=== PATIENT | female | born 1965 | race Caucasian/White ===

== ENCOUNTER 2025-01-23 06:22 | Day surgery (SDC) | payer BC ==
[~2025-01-23] VITALS: Ht 167.6 cm; Wt 87.9 kg
[~2025-01-23 06:22] MED LIST: Lactated Ringer's 1,000 ML IV ONE; Mobic15 MG PO
[2025-01-23] MEDS ORDERED: CeFAZolin Sodium 2,000 MG VIAL ONE (06:29)
[2025-01-23] MEDS ORDERED: FentaNYL Citrate 50 MCG/ML 2 ML Injection ONE (06:54)
[2025-01-23] MEDS ORDERED: propofoL 40 ML IV ONE ×2 (06:54→07:35)
[2025-01-23] MEDS ORDERED: Bupivacaine 0.5% W/EPI 1:200000 SDV 30 ML Vial ONE (07:02)
[2025-01-23] MEDS ORDERED: Lidocaine HCl 2% 10 ML SDA ONE (07:02)
[2025-01-23] MEDS ORDERED: Dexmedetomidine HCL 200 MCG / 2 ML ONE (07:14)
[2025-01-23] MEDS ORDERED: Dexamethasone Sod Phos 10 MG/ML 1ML VIAL ONE (08:03)
[2025-01-23] MEDS ORDERED: Ondansetron HCl 2 MG / ML 2ML Vial ONE (08:03)
[2025-01-23] MEDS ORDERED: Famotidine 10 MG/ML 2ML Vial ONE (08:30)
--- NOTE | 2025-01-23 08:33 | NUR ---
01/23/25 0832 FEMI TORRES PT TALKING W ANESTHESIA, AWAKE. BP 73/58.
[2025-01-23 08:53] VITALS: BP 102/66
--- NOTE | 2025-01-23 08:57 | NUR ---
01/23/25 0857 FEMI TORRES BEDSIDE CXR, ANESTHESIA PRESENT TO VIEW. ANESTHESIA STATES PT OKAY TO DC PRIOR TO XR BEING READ. PT STILL COUGHING, NON PRODUCTIVE, AWAKE, ALERT. SATS 98-99%.
[2025-01-23] MEDS ORDERED: OxyCODONE 5 mg/Acetamin 325 mg TABLET ONE (09:10)
== END 2025-01-23 09:25 | disposition home or self-care (01) ==
LOC: ORSCSDS 06:22
PROVIDERS: Podiatrist Foot & Ankle Surgery
PROC: 0QSP04Z Reposition Left Metatarsal with Internal Fixation Device, Open Approach (ICD-10-PCS; principal; 2025-01-23 07:30)
PROC: 0QSR04Z Reposition Left Toe Phalanx with Internal Fixation Device, Open Approach (ICD-10-PCS; principal; 2025-01-23 07:30)
DX: M20.12 Hallux valgus (acquired), left foot (principal)
CPT/HCPCS: 71045; A9270; C1713; C1769; J0690; J1100; J2003; J2405; J2704; J3010

== ENCOUNTER 2025-06-19 11:43 | Day surgery (SDC) | payer BC ==
[~2025-06-19] VITALS: Ht 167.6 cm; Wt 83.1 kg
[~2025-06-19 11:43] MED LIST changes: -Lactated Ringer's 1,000 ML IV ONE
[2025-06-19 13:58] VITALS: BP 118/73
== END 2025-06-19 13:54 | disposition home or self-care (01) ==
LOC: ORSCSDS 11:43
PROVIDERS: Surgery
PROC: 0DB48ZX Excision of Esophagogastric Junction, Via Natural or Artificial Opening Endoscopic, Diagnostic (ICD-10-PCS; principal; 2025-06-19 13:00)
PROC: 0DBL8ZX Excision of Transverse Colon, Via Natural or Artificial Opening Endoscopic, Diagnostic (ICD-10-PCS; principal; 2025-06-19 13:00)
PROC: 0DB98ZX Excision of Duodenum, Via Natural or Artificial Opening Endoscopic, Diagnostic (ICD-10-PCS; principal; 2025-06-19 13:00)
PROC: 0DB78ZX Excision of Stomach, Pylorus, Via Natural or Artificial Opening Endoscopic, Diagnostic (ICD-10-PCS; principal; 2025-06-19 13:00)
DX: K21.9 Gastro-esophageal reflux disease without esophagitis (principal); K44.9 Diaphragmatic hernia without obstruction or gangrene; Z12.11 Encounter for screening for malignant neoplasm of colon; D12.3 Benign neoplasm of transverse colon; K29.80 Duodenitis without bleeding; K29.70 Gastritis, unspecified, without bleeding; K64.1 Second degree hemorrhoids; E66.9 Obesity, unspecified; Z68.30 Body mass index [BMI] 30.0-30.9, adult
CPT/HCPCS: 88305; 88312; 88341; 88342; J2704; J7120

== ENCOUNTER 2025-09-05 06:38 | Day surgery (SDC) | payer BC ==
[~2025-09-05] VITALS: Ht 162.6 cm; Wt 80.1 kg
[2025-09-05] VITALS (12 sets, daily range): BP systolic 109–135; BP diastolic 67–96
--- NOTE | 2025-09-05 07:15 | NUR ---
Pre-Op teaching done. Pt verbalizes understanding. History, Chart, Medications and Allergies reviewed before start of procedure. Ambulatory in Day Surgery. Patient confirms NPO status and agrees with scheduled surgery. Patient States Post-Procedure ride home has been arranged.
[2025-09-05] MEDS ORDERED: Bupivacaine 0.5% W/EPI 1:200000 SDV 30 ML Vial ONE (07:16)
[2025-09-05] MEDS ORDERED: FentaNYL Citrate 50 MCG/ML 2 ML Injection ONE ×2 (07:29→09:17)
[2025-09-05] MEDS ORDERED: HYDROmorphone HCl/Pf 1MG SYR ONE (07:29)
[2025-09-05] MEDS ORDERED: Sugammadex Sodium 200 MG/2ML SDV (100 MG/ML) ONE (07:29)
[2025-09-05] MEDS ORDERED: Ondansetron HCl 2 MG / ML 2ML Vial ONE (07:30)
[2025-09-05] MEDS ORDERED: Rocuronium Bromide 10 MG/ML 5ML Injection IV ONE ×2 (07:30→08:28)
[2025-09-05] MEDS ORDERED: Dexamethasone Sod Phos 10 MG/ML 1ML VIAL ONE (07:30)
--- NOTE | 2025-09-05 08:23 | NUR ---
09/05/25 0823 Alejandrina Salmon PATIENT POSITIONED IN LEFT LATERAL FOR THE LIPOMA EXISION PORTION OF THE PROCEDURE. PATIENT THEN REPOSITIONED SUPINE WITH ARMS TUCKED FOR THE ROBOTIC HIATAL HERNIA REPAIR.
[2025-09-05] MEDS ORDERED: HYDROmorphone HCl/Pf 1MG SYR IV PRN ×2 (10:30→10:35)
[2025-09-05] MEDS ORDERED: FLU VACC TS2025-26(6MOS UP)/PF 45 MCG/0.5 ML SYRINGE IM SCH (10:35)
[2025-09-05] MEDS ORDERED: Ondansetron HCl 2 MG / ML 2ML Vial IV PRN ×2 (10:35)
[2025-09-05] MEDS ORDERED: HydrALAZINE HCl 20 MG / ML 1ML Vial IV PRN (10:40)
[2025-09-05] MEDS ORDERED: FentaNYL Citrate 50 MCG/ML 2 ML Injection IV PRN ×2 (10:40)
[2025-09-05] MEDS ORDERED: Ketorolac Tromethamine 15mg Vial IV PRN (11:00)
[2025-09-05] MEDS ORDERED: Phenylephrine HCl 100 MCG/ML-NS 10MLSYR (1MG/10ML) ONE (11:25)
--- NOTE | 2025-09-05 11:44 | NUR ---
PT ARRIVED TO RM 231 FROM PACU. TRANSFERRED PT TO BED FROM [facility]. ORIENTED TO USE OF CALL LIGHT. VSS. MEDICATED PER ORDERS FOR NAUSEA. PT DENIES PAIN. LAP INCISIONS TO ABD X4 W/TISS ADHESIVE CDI. INCSION X1 TO R POST SHOULDER W/TISS ADHESIVE CDI. CALL LIGHT IN REACH.
[2025-09-05] MEDS ORDERED: Prochlorperazine Edisylate 10 mg Vial IV ONE (12:50)
[2025-09-05] MEDS ORDERED: Prochlorperazine Edisylate 10 mg Vial IV PRN (13:35)
[2025-09-05] MEDS ORDERED: Ketorolac Tromethamine 30mg Vial IV ONE (16:30)
--- NOTE | 2025-09-05 17:13 | NUR ---
SUMMARY PT POD 0 FOR TOUPET FUNDIPLICATION AND R SHOULDER LIPOMA EXICISION. PT REPORTS PAIN TO BILAT SHOULDERS AND NAUSEA IMPROVED. AMBULATED TO RESTROOM AND VOIDED. NOW SITTING ON EDGE OF BED. CALL LIGHT IN REACH.
[2025-09-06 00:06] VITALS: BP 116/71
[2025-09-06 04:22] VITALS: BP 120/66
--- NOTE | 2025-09-06 04:58 | NUR ---
SHIFT SUMMARY POD 1 FUNDIPLICATION AND R SHOULDER LIPOMA EXCISION. 4 LAP SITES AND R SHOULDER INCISION SITE C/D/I. VSS. PAIN MANAGED WELL PER EMAR. PT TOLERATING DIET AND DENIES N&V. PT INDEPENDENT IN ROOM. CALL LIGHT WITHIN REACH.
[2025-09-06 07:56] VITALS: BP 123/69
[2025-09-06] MEDS ORDERED: Enoxaparin 40 MG/0.4 ML SYR SC SCH (09:00)
[2025-09-06] MEDS ORDERED: MASOPHEN325 M3 PO (12:31)
[2025-09-06] MEDS ORDERED: OXAYDO5 M1 PO (12:32)
--- NOTE | 2025-09-06 12:44 | NUR ---
DISCHARGE PATIENT TOLERATING FULL LIQ DIET, MEDICATED FOR PAIN PER EMAR, PASSING GAS, UP WALKING IN ROOM. LAP SITES AND SHOULDER SITE ARE C/D/I. IV IS TAKEN OUT INTACT AND ALL INSTRUCTIONS ARE READ AND SIGNED PATIENT LEAVES ON OWN WITH SPOUSE.
== END 2025-09-06 12:43 | disposition home or self-care (01) ==
LOC: ORSCMMR 06:38 → ORD 08:00 → ORSCMMR 08:00 → SURS 11:23 → ORSCMMR 09-06 12:43
DX: K44.9 Diaphragmatic hernia without obstruction or gangrene (principal); K21.9 Gastro-esophageal reflux disease without esophagitis; D17.1 Benign lipomatous neoplasm of skin and subcutaneous tissue of trunk; F32.A Depression, unspecified
CPT/HCPCS: 88304; A9270; J0780; J1100; J1171; J1650; J1885; J2371; J2405; J2704; J3010; J7120